=== PATIENT | female | born 1935 | race Caucasian/White ===

== ENCOUNTER 2017-11-27 09:07 | Day surgery (SDC) | payer MEDICARE ==
[2017-11-26 11:18] LABS: BASOPHILS % (AUTO) 0.3 % (0-1); EOSINOPHILS # (AUTO) 0.3 X10'3 (0-0.9); EOSINOPHILS % (AUTO) 3.6 % (0-6); HEMATOCRIT 38.2 % (35.0-45.0); HEMOGLOBIN 12.7 g/dl (12.0-16.0); LYMPHOCYTES # (AUTO) 2.6 X10'3 (1.1-4.8); LYMPHOCYTES % (AUTO) 27.6 % (21-51); MEAN CORPUSCULAR HEMOGLOBIN 28.7 PG (27.0-31.0); MEAN CORPUSCULAR HGB CONC 33.2 % (33.0-36.5); MEAN CORPUSCULAR VOLUME 86.4 FL (78-98); MEAN PLATELET VOLUME 8.9 FL (7.4-10.4); MONOCYTES % (AUTO) 10.3 % (2-12); NEUTROPHILS # (AUTO) 5.6 X10'3 (1.8-7.7); NEUTROPHILS % (AUTO) 58.2 % (42-75); PLATELET COUNT 320 X10'3 (140-440); RED BLOOD COUNT 4.42 X10'6 (4.20-5.60); RED CELL DISTRIBUTION WIDTH 14.1 % (11.5-14.5); WHITE BLOOD COUNT 9.6 X10'3 (4.5-11.0)
[2017-11-26 11:25] LABS: ALBUMIN 3.4 G/DL (3.4-5.0); ANION GAP 4 (8-16); BLOOD UREA NITROGEN 6 MG/DL (7-18); BUN/CREATININE RATIO 7.1 (6.6-38.0); CALCIUM 8.6 MG/DL (8.5-10.1); CHLORIDE 106 MMOL/L (99-107); CREATININE 0.84 MG/DL (0.40-0.90); GLUCOSE 93 MG/DL (70-104); POTASSIUM 3.9 MMOL/L (3.5-5.1); SODIUM 143 MMOL/L (135-145); TOTAL CARBON DIOXIDE 33.4 MMOL/L (24-32); eGFR 65 ML/MIN
[2017-11-26 11:26] LABS: PARTIAL THROMBOPLASTIN TIME 27 SECONDS (22-32); PROTHROMBIN TIME 10.1 SECONDS (9.0-12.0)
[2017-11-27] VITALS (10 sets, daily range): BP systolic 93–131; BP diastolic 48–71
[~2017-11-27] VITALS: Ht 160 cm; Wt 61.5 kg
[~2017-11-27 09:07] MED LIST: ALEN70TA48 PO; ATOR40TA PO; CARV3.122 PO; CHOL100046 PO; CLOP75TA15 PO; FLUO15OI15 TP; GABA-532 PO; HYDR-569 PO; LISI10TA4 PO; MULT-342 PO; VITC500T PO
[2017-11-27] MEDS ORDERED: diphenhydrAMINE 25mg capsule PO PRN (09:30)
[2017-11-27] MEDS ORDERED: normal saline 1000ml 1,000 ML IV SCH (09:30)
[2017-11-27] MEDS ORDERED: LORazepam 0.5 MG tablet PO PRN (09:30)
[2017-11-27] MEDS ORDERED: LISI-600 PO (10:12)
[2017-11-27] MEDS ORDERED: OSC500T PO (10:12)
[2017-11-27] MEDS ORDERED: AMLO10TA4 PO (10:12)
[2017-11-27] MEDS ORDERED: ASPI-107 PO (10:12)
[2017-11-27] MEDS ORDERED: nitroGLYCERIN-Tridil 50MG/D5W 250 ML IV ONE (12:05)
[2017-11-27] MEDS ORDERED: midazolam 2 mg/2 ml injection ONE (12:06)
[2017-11-27] MEDS ORDERED: iohexol 350MG/ML 100ml bottle IV ONE (12:06)
[2017-11-27] MEDS ORDERED: iohexol 350 MG/ML 50ML vial IV ONE ×2 (12:06→13:03)
[2017-11-27] MEDS ORDERED: heparin 1,000unit/ml 10ml vial 10 ML ONE (12:06)
[2017-11-27] MEDS ORDERED: fentaNYL/PF 50MCG/1 ML 2ML syringe ONE (12:06)
[2017-11-27] MEDS ORDERED: LIDOcaine 1% 30ml preserv. free vial ONE (12:06)
[2017-11-28 11:41] LABS: ISTAT HGB ART 11.6 g/dl (12.0-16.0); ISTAT Hct ART 34 %PCV (35-48); ISTAT O2 SATURATION ARTERIAL 84 % (95-98); ISTAT SOURCE ART
[2017-11-28 11:41] LABS: ISTAT Hct MIX 33 %PCV (35-48); ISTAT O2 SATURATION MIX VENOUS 59 % (60-80); ISTAT SOURCE MIX
== END 2017-11-27 17:20 | disposition home or self-care (01) ==
LOC: SSTAY O 09:07
PROVIDERS: ATTEND Internal Medicine Cardiovascular Disease
DX: I25.118 Atherosclerotic heart disease of native coronary artery with other forms of angina pectoris (principal); I10 Essential (primary) hypertension; E78.5 Hyperlipidemia, unspecified; I42.8 Other cardiomyopathies; M19.90 Unspecified osteoarthritis, unspecified site; I65.23 Occlusion and stenosis of bilateral carotid arteries; G89.29 Other chronic pain; M85.88 Other specified disorders of bone density and structure, other site; Z96.641 Presence of right artificial hip joint; Z90.710 Acquired absence of both cervix and uterus; Z90.49 Acquired absence of other specified parts of digestive tract; Z88.5 Allergy status to narcotic agent; Z86.73 Personal history of transient ischemic attack (TIA), and cerebral infarction without residual deficits; Z87.891 Personal history of nicotine dependence; Z79.01 Long term (current) use of anticoagulants; Z86.79 Personal history of other diseases of the circulatory system; Z95.5 Presence of coronary angioplasty implant and graft; Z79.891 Long term (current) use of opiate analgesic; Z79.82 Long term (current) use of aspirin; Z98.890 Other specified postprocedural states; Z79.899 Other long term (current) drug therapy
CPT/HCPCS: 36415; 80048; 82803; 85014; 85025; 85610; 85730; 93005; 93460; 99152; 99153; A6257; C1760; C1769; J1644; J2250; J3010; J3490; J7030; Q0163; Q9967; A4620

== ENCOUNTER 2018-08-20 12:36 | Inpatient (IN) | payer MEDICARE | END 2018-08-23 15:20 | disposition home or self-care (01) | LOC: ER 12:36 → PCU 3S 20:25 | DX: R65.20 Severe sepsis without septic shock (principal); N17.0 Acute kidney failure with tubular necrosis; I21.A1 Myocardial infarction type 2; E87.6 Hypokalemia; E86.0 Dehydration; I95.9 Hypotension, unspecified ==